=== PATIENT | female | born 1955 | race Caucasian/White ===

== ENCOUNTER 2022-05-19 08:23 | Outpatient (CLI) | payer OTHER | END 2022-05-19 08:24 | disposition home or self-care (01) | LOC: CSHMAMMO 08:23 | PROVIDERS: ATTEND Family Medicine | DX: Z12.31 Encounter for screening mammogram for malignant neoplasm of breast (principal) | CPT/HCPCS: 77063; 77067 ==

== ENCOUNTER 2022-05-20 09:42 | Outpatient (CLI) | payer OTHER | END 2022-05-20 09:43 | disposition home or self-care (01) | LOC: CSHMAMMO 09:42 | PROVIDERS: ATTEND Family Medicine | DX: Z13.820 Encounter for screening for osteoporosis (principal); Z78.0 Asymptomatic menopausal state; M81.0 Age-related osteoporosis without current pathological fracture; M85.851 Other specified disorders of bone density and structure, right thigh; M85.852 Other specified disorders of bone density and structure, left thigh | CPT/HCPCS: 77080 ==

== ENCOUNTER 2023-08-28 14:38 | Outpatient (CLI) | payer OTHER | END 2023-08-28 14:39 | disposition home or self-care (01) | LOC: CSHMAMMO 14:38 | PROVIDERS: ATTEND Family Medicine | DX: Z12.31 Encounter for screening mammogram for malignant neoplasm of breast (principal) | CPT/HCPCS: 77063; 77067 ==

== ENCOUNTER 2024-08-30 10:38 | Outpatient (CLI) | payer OTHER | END 2024-08-30 10:39 | disposition home or self-care (01) | LOC: CSHMAMMO 10:38 | PROVIDERS: ATTEND Family Medicine | DX: Z12.31 Encounter for screening mammogram for malignant neoplasm of breast (principal) | CPT/HCPCS: 77063; 77067 ==